=== PATIENT | male | born 1940 | race Caucasian/White ===

== ENCOUNTER 2022-09-14 09:34 | Emergency (ER) | payer MEDICARE, OTHER ==
[~2022-09-14] VITALS: Wt 66.8 kg
[2022-09-14 10:32] LABS: MEAN CELL VOLUME 92.3 fl (80.0-94.0); MEAN CORPUSCULAR HGB 31.9 pg (27.0-31.0); MEAN CORPUSCULAR HGB CONC 34.5 g/dl (33.0-37.0); MEAN PLATELET VOLUME 11.9 fl (9.6-12.3); PLATELET COUNT AUTOMATED 125 10*3/uL (130-400); RED BLOOD COUNT 4.55 10*6/uL (4.50-5.90); RED CELL DISTRI WIDTH 14.1 % (0-14.5); WHITE BLOOD COUNT 10.6 10*3/uL (4.8-10.8)
[2022-09-14 10:42] LABS: CREATININE 1.44 mg/dL (0.70-1.30); POTASSIUM 3.6 mmol/L (3.5-5.1)
[2022-09-14 10:45] LABS: ACT PARTIAL THROMBO TIME 31.6 SECONDS (20.0-32.1); INTERNATIONAL NORM RATIO 1.3 (2.0-3.5)
[2022-09-14 10:55] LABS: MANUAL DIFF REFLEX YES
[2022-09-14 10:57] LABS: ATYPICAL LYMPHS 1 % (0-0); TOTAL CELLS COUNTED 100 #CELLS
[2022-09-14 10:58] LABS: PLATELET SUFFICIENCY LOW (NORMAL)
[2022-09-16] MEDS ORDERED: CELEXA10 MG PO (05:54)
[2022-09-16] MEDS ORDERED: RIVASTIGMINE TAR3 M1 PO (05:55)
[2022-09-18] MEDS ORDERED: CIPRO500 MG PO (14:20)
[2022-09-18] MEDS ORDERED: NORVASC10 MG PO (23:14)
[2022-09-18] MEDS ORDERED: LIPITOR20 MG PO (23:14)
[2022-09-18] MEDS ORDERED: ELIQUIS5 M1 PO (23:14)
[2022-09-18] MEDS ORDERED: HYDRALAZINE HYD50 MG PO (23:15)
[2022-09-18] MEDS ORDERED: JANUVIA50 MG PO (23:15)
[2022-09-18] MEDS ORDERED: VALSARTAN40 MG PO (23:15)
[2022-09-19] MEDS ORDERED: RISPERDAL0.5 MG PO (05:50)
[2022-09-19] MEDS ORDERED: VITAMIN D325 MCG PO (05:51)
[2022-09-19] MEDS ORDERED: TYLENOL EXTRA500 M2 PO (05:52)
== END 2022-09-14 14:25 | disposition home or self-care (01) ==
LOC: ED 09:34
PROVIDERS: Emergency Medicine
DX: M25.461 Effusion, right knee (principal); M25.551 Pain in right hip; M79.661 Pain in right lower leg; Z91.041 Radiographic dye allergy status; W01.0XXA Fall on same level from slipping, tripping and stumbling without subsequent striking against object, initial encounter; Y93.89 Activity, other specified; Y92.128 Other place in nursing home as the place of occurrence of the external cause; Y99.8 Other external cause status

== ENCOUNTER 2022-09-22 13:30 | Inpatient (IN) | payer OTHER, MEDICARE ==
[~2022-09-22] VITALS: Ht 160 cm; Wt 65.3 kg
[~2022-09-22 13:30] MED LIST: CELEXA10 MG PO; CIPRO500 MG PO; ELIQUIS5 M1 PO; HYDRALAZINE HYD50 MG PO; JANUVIA50 MG PO; LIPITOR20 MG PO; NORVASC10 MG PO; RISPERDAL0.5 MG PO; RIVASTIGMINE TAR3 M1 PO; TYLENOL EXTRA500 M2 PO; VALSARTAN40 MG PO; VITAMIN D325 MCG PO
[2022-09-22 14:00] VITALS: BP 163/79
[2022-09-22 16:00] VITALS: BP 160/95
[2022-09-23] VITALS: BP 167/91
[2022-09-23 08:00] VITALS: BP 156/67
[2022-09-23] MEDS ORDERED: LORAZEPAM0.5 M1 SL (11:05)
[2022-09-23] MEDS ORDERED: BISACODYL10 MG R (11:05)
[2022-09-23] MEDS ORDERED: MORPHINE S10 MG/0.2 SL (11:05)
== END 2022-09-23 16:10 | disposition hospice, home (50) | DRG 64 ==
LOC: ICCU 13:30
PROVIDERS: ADMIT Student in an Organized Health Care Education/Training Program; ATTEND Student in an Organized Health Care Education/Training Program
DX: I61.9 Nontraumatic intracerebral hemorrhage, unspecified (principal); N17.0 Acute kidney failure with tubular necrosis; E44.0 Moderate protein-calorie malnutrition; R73.9 Hyperglycemia, unspecified; D64.9 Anemia, unspecified; G30.9 Alzheimer's disease, unspecified; F02.80 Dementia in other diseases classified elsewhere, unspecified severity, without behavioral disturbance, psychotic disturbance, mood disturbance, and anxiety; Z51.5 Encounter for palliative care; Z68.24 Body mass index [BMI] 24.0-24.9, adult